=== PATIENT | male | born 1955 | race Caucasian/White ===

== ENCOUNTER 2016-08-15 11:55 | Emergency (ER) | payer BC ==
[~2016-08-15] VITALS: Ht 175.3 cm; Wt 67.9 kg
[2016-08-15 11:57] VITALS: TEMP 36.4; Ht 175.3 cm; Wt 67.9 kg
[2016-08-15] MEDS ORDERED: OPTIRAY 320 IV PRN (12:45)
[2016-08-15 12:48] LABS: BASO % 0.1 %; BASO ABS # 0.01 K/uL (0-0.2); COMPLETE YES; EOS % 0.1 %; HEMATOCRIT 47.5 % (42-52); IG% 0.1 %; LYMPH ABS # 1.18 K/uL (1.2-3.4); MEAN CELL VOLUME 88.1 fL (80-100); MEAN CORPUSCULAR HEMOGLOBIN 31.4 pg (25-34); MEAN CORPUSCULAR HGB CONC 35.6 g/dl (32-36); MEAN PLATELET VOLUME 9.3 fL (7.4-10.4); MONO % 5.3 %; NEUT % 81.4 %; PLATELET COUNT 218 K/uL (130-400); RED BLOOD COUNT 5.39 M/uL (4.7-6.1); WHITE BLOOD COUNT 9.08 K/uL (4.8-10.8)
[2016-08-15 12:51] LABS: URINE APPEARANCE CLEAR (CLEAR); URINE BILIRUBIN NEG (NEG); URINE COLOR YELLOW; URINE NITRITE NEG (NEG); URINE PH 5.5 (4.5-7.5); URINE SPECIFIC GRAVITY 1.022 (1.000-1.030); UROBILINOGEN NEG (NEG)
[2016-08-15 12:54] LABS: MANUAL MICROSCOPIC REQUIRED? NO; REVIEW REQ? NO
[2016-08-15 13:04] LABS: ALT/SGPT 33 U/L (12-78); BLOOD UREA NITROGEN 29 mg/dl (7-18); BUN/CREATININE RATIO 21.9 (10-20); CALCIUM 9.5 mg/dl (8.5-10.1); CARBON DIOXIDE 26 mmol/L (21-32); CHLORIDE 105 mmol/L (98-107); GLUCOSE 94 mg/dl (70-99); SODIUM 141 mmol/L (136-145)
[2016-08-15 13:07] LABS: ALKALINE PHOSPHATASE 59 U/L (45-117); AST/SGOT 34 U/L (15-37)
--- NOTE | 2016-08-15 15:04 | DIAGNOSTIC IMAGING REPORT ---
ABDOMEN AND PELVIS CT WITH IV AND ORAL CONTRAST CT DOSE: 279.51 mGy.cm HISTORY: Pain eval for diver tic TECHNIQUE: Multiaxial CT images of the abdomen and pelvis were performed following the use of intravenous and oral contrast. COMPARISON STUDY: None. FINDINGS: Lung bases are clear liver spleen and pancreas are unremarkable. Kidneys enhance uniformly. No evidence for hydronephrosis. Bowel pattern is nonobstructive. No significant abdominal pelvic or inguinal adenopathy. Appendix is normal. No free fluid within the pelvic cul-de-sac. Several central prosthetic calcifications. IMPRESSION: No significant abnormality identified within the abdomen or pelvis. Electronically signed by: Wally Alicia M.D. 08/15/2016 3:03 PM Dictated Date/Time: 08/15/2016 3:01 PM
[2016-08-15 15:56] VITALS: BP 134/83; PULSE 50; O2SAT 97
--- NOTE | 2016-08-15 18:51 | EMERGENCY ROOM VISIT NOTE ---
History Report prepared by Asha: Tameka Stacy Under the Supervision of: Dr. Carlos Garcia M.D. First contact with patient: 12:02 Chief Complaint: ABDOMINAL PAIN Stated Complaint: ABD. PAIN History of Present Illness The patient is a 61 year old male who presents to the Emergency Room with complaints of waxing and waning abdominal pain beginning 4 hours ago. The patient states that he was out for his usual morning run and during the last mile of run he began feeling dull persistent abdominal pain above his navel. He notes that he ate breakfast after his run and it did not change his symptom intensity. He reports that he had a normal bowel movement this morning. The patient complains of dry heaves and nausea while he was at the urgent care center just [facility] [employer]. He denies any fever, vomiting, abnormal bowel movements, black or bloody stools, diarrhea, chest pain, shortness of breath, and urinary symptoms. He notes that he has not had any alcohol recently and states that he had a routine colonoscopy a couple of weeks ago and it came back fine. The patient states that he is visiting from [place] and notes that he goes to [employer] and has had multiple spots removed on his face. Source of History: patient Onset: 4 hours ago Position: abdomen Quality: dull Timing: waxes/wanes Associated Symptoms: + nausea, No SOB, No chest pain, No diarrhea, No fevers , No melena, No urinary symptoms, No vomiting Note: The patient complains of dry heaves. He denies any abnormal bowel movements. Review of Systems See HPI for pertinent positives & negatives. A total of 10 systems reviewed and were otherwise negative. Past Medical & Surgical Surgical Problems: (1) H/O cystoscopy (2) H/O mastoidectomy Family History Cancer Social History Smoking Status: Never Smoker Smokeless Tobacco Use: No Alcohol Use: occasionally Marital Status: single Housing Status: lives alone Occupation Status: employed Current/Historical Medications No Active Prescriptions or Reported Meds Allergies Coded Allergies: No Known Allergies (Unverified , 08/15/16) Physical Exam Vital Signs Date Time Temp Pulse Resp B/P Pulse Ox O2 Delivery O2 Flow Rate FiO2 08/15/16 15:56 50 20 134/83 97 08/15/16 14:10 56 16 136/80 100 Room Air 08/15/16 13:04 52 20 125/77 99 Room Air 08/15/16 11:57 36.4 67 18 154/94 98 Room Air Physical Exam Constitutional: Vital signs reviewed. Eyes: Pupils are equal round reactive to light. Conjunctiva are noninjected. ENT: Pharynx is clear without erythema or exudate. Mucous membranes are moist. Neck supple without meningeal signs. Respiratory: Clear to auscultation bilaterally. Breath sounds are equal bilaterally. Cardiovascular: Mild bradycardia. Regular rate. No rubs or gallops. GI: Soft, nondistended. Bowel sounds are present. Diffuse tenderness, no guarding or rebound. Musculoskeletal: No peripheral edema. No CVA tenderness. Integumentary: No cyanosis. Neurological: The patient is awake and alert. No focal deficits. Psychiatric: Normal affect. Medical Decision & Procedures ER Provider Diagnostic Interpretation: CT results as stated below per my review and radiologist interpretation. ABDOMEN AND PELVIS CT WITH IV AND ORAL CONTRAST FINDINGS: Lung bases are clear liver spleen and pancreas are unremarkable. Kidneys enhance uniformly. No evidence for hydronephrosis. Bowel pattern is nonobstructive. No significant abdominal pelvic or inguinal adenopathy. Appendix is normal. No free fluid within the pelvic cul-de-sac. Several central prosthetic calcifications. IMPRESSION: No significant abnormality identified within the abdomen or pelvis. Electronically signed by: Wally Alicia M.D. 08/15/2016 3:03 PM Dictated Date/Time: 08/15/2016 3:01 PM Laboratory Results 08/15/16 12:36 Red Blood Count 5.39, Mean Corpuscular Volume 88.1, Mean Corpuscular Hemoglobin 31.4, Mean Corpuscular Hemoglobin Concent 35.6, Mean Platelet Volume 9.3, Neutrophils (%) (Auto) 81.4, Lymphocytes (%) (Auto) 13.0, Monocytes (%) (Auto) 5.3, Eosinophils (%) (Auto) 0.1, Basophils (%) (Auto) 0.1, Neutrophils # (Auto) 7.39, Lymphocytes # (Auto) 1.18, Monocytes # (Auto) 0.48, Eosinophils # (Auto) 0.01, Basophils # (Auto) 0.01 08/15/16 12:36 Test 08/15/16 12:32 08/15/16 12:36 Urine Color YELLOW Urine Appearance CLEAR (CLEAR) Urine pH 5.5 (4.5-7.5) Urine Specific [place] 1.022 (1.000-1.030) Urine Protein NEG (NEG) Urine Glucose (UA) NEG (NEG) Urine Ketones TRACE (NEG) Urine Occult Blood NEG (NEG) Urine Nitrite NEG (NEG) Urine Bilirubin NEG (NEG) Urine Urobilinogen NEG (NEG) Urine Leukocyte Esterase NEG (NEG) White Blood Count 9.08 K/uL (4.8-10.8) Red Blood Count 5.39 M/uL (4.7-6.1) Hemoglobin 16.9 g/dL (14.0-18.0) Hematocrit 47.5 % (42-52) Mean Corpuscular Volume 88.1 fL (80-100) Mean Corpuscular Hemoglobin 31.4 pg (25-34) Mean Corpuscular Hemoglobin Concent 35.6 g/dl (32-36) Platelet Count 218 K/uL (130-400) Mean Platelet Volume 9.3 fL (7.4-10.4) Neutrophils (%) (Auto) 81.4 % Lymphocytes (%) (Auto) 13.0 % Monocytes (%) (Auto) 5.3 % Eosinophils (%) (Auto) 0.1 % Basophils (%) (Auto) 0.1 % Neutrophils # (Auto) 7.39 K/uL (1.4-6.5) Lymphocytes # (Auto) 1.18 K/uL (1.2-3.4) Monocytes # (Auto) 0.48 K/uL (0.11-0.59) Eosinophils # (Auto) 0.01 K/uL (0-0.5) Basophils # (Auto) 0.01 K/uL (0-0.2) RDW Standard Deviation 40.6 fL (36.4-46.3) RDW Coefficient of Variation 12.7 % (11.5-14.5) Immature Granulocyte % (Auto) 0.1 % Immature Granulocyte # (Auto) 0.01 K/uL (0.00-0.02) Anion Gap 10.0 mmol/L (3-11) Est Creatinine Clear Calc Drug Dose 58.8 ml/min Estimated GFR () 69.2 Estimated GFR (Non- 59.7 BUN/Creatinine Ratio 21.9 (10-20) Calcium Level 9.5 mg/dl (8.5-10.1) Total Bilirubin 0.7 mg/dl (0.2-1) Direct Bilirubin 0.2 mg/dl (0-0.2) Aspartate Amino Transf (AST/SGOT) 34 U/L (15-37) Alanine Aminotransferase (ALT/SGPT) 33 U/L (12-78) Alkaline Phosphatase 59 U/L (45-117) Troponin I < 0.015 ng/ml (0-0.045) Total Protein 8.2 gm/dl (6.4-8.2) Albumin 4.6 gm/dl (3.4-5.0) Lipase 147 U/L (73-393) Laboratory results as reviewed by me. ECG Indication: abdominal pain Rate (beats per minute): 49 Rhythm: sinus bradycardia Findings: no ectopy, other (Peaked T-waves V3-V5, early repolarization) ED Course 1202: The patient was evaluated in room A4. A complete history and physical exam was performed. 1400: I reevaluated the patient and discussed his test results. He reports that he usually has an abnormal EKG and had a cardiac stress test to evaluate it that came back normal. He notes that his abdominal pain is significantly better. 1535: The patient states that his pain is now completely gone and he was advised to follow up closely with his PCP. 1545: Upon reevaluation, the patient appeared to have improvement of his symptoms. I discussed angely's findings with the patient. He verbalized agreement of the treatment plan. The patient was discharged home. Medical Decision This is a 61-year-old male who presents with diffuse abdominal pain and tenderness. Differential diagnosis includes pancreatitis, cholecystitis, [place], diverticulitis, appendicitis, irritable bowel syndrome. I did perform a limited focused review of portions of the patient's old chart on the electronic medical record. The patient has had no prior visits. I did evaluate the patient as noted above. The patient is presenting with abdominal pain which started just above his umbilicus. Currently he has diffuse abdominal pain and tenderness. IV access was established. The patient declined any medications at this time. I did order and personally review the patient's 12-lead EKG as described above. He does have an abnormal EKG but denies having any chest discomfort or shortness of breath. He states that he has been told in the past that he had a abnormal EKG and had a negative stress test several years ago. Urine analysis is unremarkable. I did order and review the patient's blood work as noted in the electronic medical record. His white blood cell count is not elevated. LFTs are unremarkable. Lipase is not elevated. I did order a CT of the abdomen and pelvis. I did review the images myself as well as the radiology report as described above.There is no evidence of acute abnormality on CT scanning. I did reassess the patient. He states that his pain is now completely resolved. He has no tenderness on examination. I did discuss the test results with him. He was advised follow closely with his doctor. He was discharged in good condition and given return instructions as outlined below. Impression Primary Impression: Diffuse abdominal pain Scribe Attestation The scribe's documentation has been prepared under my direct and personally reviewed by me in its entirety. I confirm that the note above accurately reflects all work, treatment, procedures, and medical decision making performed by me. Departure Information Dispostion Home / Self-Care Prescriptions No Active Prescriptions or Reported Meds Referrals No Doctor, Assigned (PCP) Forms Call Back Authorization, HOME CARE DOCUMENTATION FORM, IMPORTANT VISIT INFORMATION Patient Instructions ED Abd Pain Unkn Cause Male, My [facility] Additional Instructions You have been examined and treated today on an emergency basis only. This is not a substitute for, or an effort to provide, complete comprehensive medical care. It is impossible to recognize and treat all injuries or illnesses in a single emergency department visit. It is therefore important that you follow up closely with your physician. Call as soon as possible for an appointment. Return for worsening symptoms or if you develop fever, vomiting, rectal bleeding , significant pain in the right lower abdomen, chest pain, shortness of breath or any other concerning symptoms.
== END 2016-08-15 15:57 | disposition home or self-care (01) ==
LOC: C.EDB 11:57 → C.EDA 15:57
DX: R10.84 Generalized abdominal pain (principal)